=== PATIENT | male | born 1960 | race Caucasian/White ===

== ENCOUNTER 2017-10-09 10:16 | Outpatient (CLI) | END 2017-10-09 10:17 | disposition home or self-care (01) | LOC: RHC-LAB 10:16 | PROVIDERS: ATTEND Emergency Medicine | DX: I20.9 Angina pectoris, unspecified (principal); I50.22 Chronic systolic (congestive) heart failure; I10 Essential (primary) hypertension; E11.9 Type 2 diabetes mellitus without complications; Z79.4 Long term (current) use of insulin; Z12.5 Encounter for screening for malignant neoplasm of prostate | CPT/HCPCS: 36415; 80053; 80061; 83036; 84443; 85025 ==

== ENCOUNTER 2017-10-21 19:43 | Observation (INO) | payer OTHER ==
[2017-10-21] MEDS ORDERED: SODIUM CHLORIDE 1,000 ML IV SCH (20:00)
[2017-10-21 21:09] VITALS: BMI 22.5
--- NOTE | 2017-10-21 21:34 | CT ---
EXAM: CT abdomen pelvis without intravenous contrast 10/21/2017. Sagittal and coronal reformatted i mages obtained HISTORY: Rectal bleeding COMPARISON: 07/06/2016 FINDINGS: The liver gallbladder show no acute abnormality. Nodularity of the liver surface may relat e to cirrhosis. Correlate clinically. The adrenal glands, kidneys, spleen and pancreas show no acute abnormality. There is no bowel obstruction. Unremarkable urinary bladder. No free air or free fluid. Large quantity of stool in the colon suggesting constipation/fecal stasis . Normal appendix. Severe atherosclerotic vascular disease. Dense calcifications suggest stenosis of bilateral common i liac arteries. Bilateral renal arterial stents are in place. Severe chronic degenerative disc disease. No acute osseous abnormality. Soft tissue density of the right inguinal canal could represent the right testicle. Correlate with p hysical exam. IMPRESSION: 1. Cirrhotic morphology of the liver. 2. Severe atherosclerotic vascular disease. Dense calcification appears to cause stenosis of bilate ral common iliac arteries. 3. Bilateral renal arterial stents are in place. 4. No urinary or bowel obstruction and normal appendix 5. Large quantity of stool in the colon suggesting constipation/fecal stasis. 6. Technically limited examination due to the lack of intravenous contrast. 7. Soft tissue density in the right inguinal canal. This could potentially represent the right testi boo. Correlate with physical exam
[2017-10-21] MEDS ORDERED: SYMBICORT 160-4.5 MCG INHALER IH PRN (23:19)
[2017-10-21] MEDS ORDERED: TYLENOL PO PRN (23:28)
[2017-10-22] MEDS ORDERED: LASIX TAB PO SCH (06:30)
[2017-10-22] MEDS ORDERED: NITROSTAT SL PRN ×2 (07:44→10:00)
[2017-10-22] MEDS ORDERED: ASPIRIN EC PO SCH (08:00)
[2017-10-22] MEDS ORDERED: COREG PO SCH ×2 (08:00→09:45)
[2017-10-22] MEDS ORDERED: MICRO-K CAP PO SCH ×2 (09:00→09:45)
[2017-10-22] MEDS ORDERED: FLOMAX PO SCH ×2 (09:00→09:45)
[2017-10-22] MEDS ORDERED: ZANTAC PO SCH ×2 (09:00→09:45)
[2017-10-22] MEDS ORDERED: FLEXERIL PO SCH ×2 (09:00→09:45)
[2017-10-22] MEDS ORDERED: ZESTRIL PO SCH ×2 (09:00→09:45)
[2017-10-22] MEDS ORDERED: NON-FORMULARY MEDICATION (Potassium Chloride [Potassium Chloride] 10 MEQ) PO SCH (09:00)
[2017-10-22] MEDS ORDERED: LIBRIUM PO SCH ×2 (09:00→09:45)
[2017-10-22] MEDS ORDERED: MEVACOR PO SCH ×2 (09:00→09:45)
[2017-10-22] MEDS ORDERED: INSULIN GLARGINE HUM REC ANLOG 30 UNIT SQ SCH (09:00)
[2017-10-22] MEDS ORDERED: CARDIZEM PO SCH ×2 (09:00→09:45)
[2017-10-22] MEDS ORDERED: NITROSTAT SL SCH (09:00)
[2017-10-22] MEDS ORDERED: CITRATE OF MAGNESIA PO STA (09:17)
[2017-10-22] MEDS ORDERED: SYMBICORT 160-4.5 MCG INHALER IH PRN (10:00)
[2017-10-22 14:40] VITALS: BP 123/70; TEMP 97.6
[2017-10-23] MEDS ORDERED: LASIX TAB PO SCH (06:30)
[2017-10-23] MEDS ORDERED: ASPIRIN EC PO SCH (08:00)
--- NOTE | 2017-10-27 22:33 | PCM.HOSP ---
- Initial Hospital Care [id number] 70 Minutes Bedside ([id number]): 10/21 - Hospital Discharge [id number] More than 30 Minutes ([id number]): 10/22
--- NOTE | 2017-10-31 09:59 | DS ---
DATE OF SERVICE: 10/22/17 FINAL DIAGNOSIS: 1. Rectal bleeding which is resolved 2. Anemia 3. Severe constipation 4. History of CVA 5. COPD 6. GERD 7. Diabetes 8. Hypertension 9. Dyslipidemia 10.Coronary artery disease 11.Angina 12.Inguinal hernia, left side 13.Bilateral renal stents 14.CABG DISCHARGE INSTRUCTIONS: Discharge the patient home. Increase the Fiber diet. Followup in the [facility] within 4-5 days. Continue home medications. MEDICATIONS AT DISCHARGE: Coreg Chlordiazepoxide Cyclobenzaprine Cardizem Lasix Lisinopril Lovastatin Nitroglycerin Potassium Insulin Lantus Miralax PO daily DIET INSTRUCTIONS: Cardiac and Healthy ACTIVITY: As much as tolerated DISEASE SPECIFIC EDUCATION: Constipation High fiber diet Been discussed and verbalized understanding. HOSPITAL COURSE: Eliezer Baker with the multiple medical problems with CAD, CHF and hypertension came to the office complaining of the patient did have two episodes of the rectal bleed at home every since Saturday and constipated. At that time the patient was looking pale and given his complex history and the patient been living by himself at home and recently Vacation to [place] the patient was admitted for the observation. IV fluids were given. Stool for occult blood was positive. Hgb and hct was stable by next day. CT of abdomen and pelvic showed the moderate amount of constipation. The patient was given Mag Citrate and started having the BM's at that time that patient is being discharged home. TIME SPENT: MORE THAN 55 MINUTES MTDD
== END 2017-10-22 15:08 | disposition home or self-care (01) ==
LOC: MEDSURG A 19:43 → INTOOBSV 19:43
PROVIDERS: ADMIT Emergency Medicine; ATTEND Emergency Medicine
DX: K62.5 Hemorrhage of anus and rectum (principal); D64.9 Anemia, unspecified; K59.00 Constipation, unspecified; J44.9 Chronic obstructive pulmonary disease, unspecified; K21.9 Gastro-esophageal reflux disease without esophagitis; E11.9 Type 2 diabetes mellitus without complications; I10 Essential (primary) hypertension; E78.5 Hyperlipidemia, unspecified; I25.810 Atherosclerosis of coronary artery bypass graft(s) without angina pectoris; I20.9 Angina pectoris, unspecified; K40.90 Unilateral inguinal hernia, without obstruction or gangrene, not specified as recurrent; I50.9 Heart failure, unspecified; Z86.73 Personal history of transient ischemic attack (TIA), and cerebral infarction without residual deficits; Z96.0 Presence of urogenital implants
CPT/HCPCS: 36415; 80053; 82272; 82962; 85025; 96360; 96361

== ENCOUNTER 2017-12-26 12:05 | Outpatient (CLI) | payer OTHER | END 2017-12-26 12:06 | disposition home or self-care (01) | LOC: RHC-LAB 12:05 | PROVIDERS: ATTEND Emergency Medicine | DX: I20.9 Angina pectoris, unspecified (principal); F33.1 Major depressive disorder, recurrent, moderate | CPT/HCPCS: 36415; 80053; 85025 ==

== ENCOUNTER 2018-02-26 11:32 | Outpatient (CLI) | END 2018-02-26 11:33 | disposition home or self-care (01) | LOC: RHC-LAB 11:32 | PROVIDERS: ATTEND Emergency Medicine | DX: E11.9 Type 2 diabetes mellitus without complications (principal); I20.9 Angina pectoris, unspecified; F33.1 Major depressive disorder, recurrent, moderate; Z79.4 Long term (current) use of insulin | CPT/HCPCS: 36415; 80061; 82043; 83036; 84443 ==

== ENCOUNTER 2018-02-28 08:59 | Outpatient (CLI) ==
--- NOTE | 2018-02-28 10:22 | DI ---
EXAM: Double contrast esophagram. History: Dysphagia. Technique: Patient was given oral barium and multiple spot films of the esophagus and gastroesophage al junction were obtained in various projections. Findings: The course and caliber of the esophagus are within normal limits. No esophageal mucosal le sions or filling defects identified. No extravasation of the contrast material. Tertiary waves were seen within the esophagus. Gastroesophageal junction is patent. No hiatal hernia. No gastroesopha geal reflux was observed during the course of the examination. Impression: Tertiary waves and probable mild esophageal spasm consistent with a mild degree of dysmo tility. Examination is otherwise unremarkable.
== END 2018-02-28 09:00 | disposition home or self-care (01) ==
LOC: RAD 08:59
PROVIDERS: ATTEND Emergency Medicine
DX: R13.12 Dysphagia, oropharyngeal phase (principal)

== ENCOUNTER 2018-06-10 11:38 | Outpatient (CLI) | payer OTHER | END 2018-06-10 11:39 | disposition home or self-care (01) | LOC: FCC-LAB 11:38 | PROVIDERS: ATTEND Nurse Practitioner Family | DX: I50.22 Chronic systolic (congestive) heart failure (principal); I10 Essential (primary) hypertension; E11.9 Type 2 diabetes mellitus without complications; K92.1 Melena; Z86.2 Personal history of diseases of the blood and blood-forming organs and certain disorders involving the immune mechanism | CPT/HCPCS: 36415; 80053; 83036; 85025 ==

== ENCOUNTER 2018-11-13 11:06 | Outpatient (CLI) | END 2018-11-13 11:07 | disposition home or self-care (01) | LOC: RHC-LAB 11:06 → FCC-LAB 11:07 | PROVIDERS: ATTEND Nurse Practitioner Family | DX: Z51.81 Encounter for therapeutic drug level monitoring (principal); Z79.899 Other long term (current) drug therapy; E11.9 Type 2 diabetes mellitus without complications; D64.9 Anemia, unspecified | CPT/HCPCS: 36415; 80306; 83036; 85025 ==

== ENCOUNTER 2018-11-14 08:50 | Outpatient (CLI) ==
--- NOTE | 2018-11-14 10:59 | DI ---
EXAM: CHEST FRONTAL AND LATERAL VIEWS HISTORY: Anemia. COMPARISON: 11/10/2008 FINDINGS: Heart size remains within normal limits. Sternotomy wires are present. There is diffuse, chronic appearing interstitial accentuation. Mild hyperinflation. No acute infiltrates are seen. No vascular congestion. There is no consolidation, visible pleural fluid or pneumothorax. Bones rev eal no acute fracture. IMPRESSION: No acute cardiopulmonary process.
== END 2018-11-14 08:51 | disposition home or self-care (01) ==
LOC: RAD 08:50
PROVIDERS: ATTEND Nurse Practitioner Family
DX: D64.9 Anemia, unspecified (principal); R06.02 Shortness of breath; I50.22 Chronic systolic (congestive) heart failure
CPT/HCPCS: 93005; 93010

== ENCOUNTER 2018-12-18 06:49 | Outpatient (CLI) | payer OTHER ==
--- NOTE | 2018-12-22 10:22 | ECHO2D ---
Date of Exam: 12/18/18 Ordering Physician: MAX GIL APRN Room #: OP Reason for Echo: ANGINA, CHRONIC SYSTOLIC HEART FAILURE, SOB M-Mode Normal Adult Results LV Dimensions Normal Adult Results AoV Opening excursions >1.6 >1.6 LVEDD-base- 3.5-5.8 4.3 Ao root dimensions 2.0-3.7 3.3 LVESD-base- 3.1-4.6 L. Atrium dimensions 1.9-3.8 3.6 Post. Wall thickness 0.8-1.1 1.2 IV septum (thickness) 0.7-1.2 1.3 Post. Wall excursion 0.72-1.3 NORMAL Septal motion 0.3 Systolic motion R. Ventricular cavity 1.5-2.0 3.0 LVEF 60% 58% Paradoxical septal wall motion MAYBE 2-D : 2-D M Mode Echocardiogram was performed using apical four chamber and left parasternal long and short axis views. Mitral, tricuspid and aortic valves appear to be normal. Contractility of the left ventricle seems to be normal, so is the cavity size. Left atrial cavity size and aortic root appear to be normal. There is no pericardial effusion. There is no thrombus noted in the left ventricular or left aortic cavity. No mitral valve prolapse noted. ENLARGED RIGHT VENTRICLE CAVITY, HYPOKINETIC SEPTUM M-MODE: MV: NORMAL AV: NORMAL TV: NORMAL PV: CHAMBER SIZE: ENLARGED RIGHT VENTRICLE CAVITY WALL MOTION: HYPOKINETIC SEPTAL WALL PERICARDIUM: NORMAL INTERPRETATION: 1. LEFT VENTRICULAR HYPERTROPHY 2. ENLARGED RIGHT VENTRICLE CAVITY 3. HYPOKINETIC SEPTUM WITH EJECTION FRACTION 58% (BASAL PORTION) 4. NORMAL LEFT VENTRICLE AND LEFT ATRIAL SIZE--VALVES NORMAL MTDD
== END 2018-12-18 06:50 | disposition home or self-care (01) ==
LOC: CAR 06:49
PROVIDERS: ATTEND Nurse Practitioner Family
DX: I50.22 Chronic systolic (congestive) heart failure (principal); R06.02 Shortness of breath

== ENCOUNTER 2019-03-17 12:11 | Outpatient (CLI) | END 2019-03-17 12:12 | disposition home or self-care (01) | LOC: RHC-LAB 12:11 → FCC-LAB 12:12 | PROVIDERS: ATTEND Family Medicine | DX: J30.2 Other seasonal allergic rhinitis (principal) | CPT/HCPCS: 82043 ==